=== PATIENT | female | born 1955 | race Caucasian/White ===

== ENCOUNTER 2024-10-13 12:26 | Emergency (ER) | payer MEDICARE, MEDICAID, SELFPAY ==
[2024-10-13 12:28] VITALS: BMI 40.3
[2024-10-13 13:09] VITALS: BP 149/80; PULSE 91; RESP 18; TEMP 37.3; O2SAT 95
--- NOTE | 2024-10-13 13:21 | EDNOTE_ITS ---
<Statement entered by Denise Mcgill MD - 10/21/24 16:19> As co-signing physician, I was present and available for consult prn. I concur with the plan and care as documented by the midlevel provider. ED Abdominal Pain RME/HPI General Chief Complaint: Abdominal Pain Stated complaint: ABD PAIN FOR 3 WEEKS, U/S DONE AT CLINIC Time seen by provider: 10/13/24 13:21 Arrival date/time: 10/13/24 12:26 68-year-old female presents emergency department today complains of intermittent abdominal pain x 1 month patient reports had outpatient ultrasound in the clinic patient does report she has follow-up patient reports that she needs a refill on [place] and that she will be okay to follow-up on an outpatient basis her primary care doctor. Patient reports no fever nausea or vomiting no chest pain or shortness of breath Limitations: no limitations Related Data Previous Rx's ?Medication ?Instructions ?Recorded hydrocodone 5 mg-acetaminophen 325 1 tab PO BID PRN pain #10 tabs 10/13/24 mg tablet Allergies Allergy/AdvReac Type Severity Reaction Status Date / Time No Known Allergies Allergy Verified 10/13/24 12:29 Review of Systems Review of Systems Systems Reviewed: All systems reviewed, normal except as documented Constitutional Constitutional: Reports system reviewed and no additional complaints, except as documented, Denies fever(s) and Denies headache(s) Eyes Eyes: Reports system reviewed and no additional complaints, except as documented and Denies blurry vision ENT Ears, Nose, Mouth, and Throat: Reports system reviewed and no additional complaints, except as documented, Denies headache(s), Denies nasal congestion and Denies nasal discharge Cardiovascular Cardiovascular: Reports system reviewed and no additional complaints, except as documented, Denies chest pain and Denies dyspnea Respiratory Respiratory: Reports system reviewed and no additional complaints, except as documented, Denies chest congestion, Denies cough and Denies dyspnea Gastrointestinal Gastrointestinal: Reports system reviewed and no additional complaints, except as documented, Reports abdominal pain, Denies nausea and Denies vomiting Integumentary/Breasts Skin/Breast: Reports system reviewed and no additional complaints, except as documented and Denies rash Neurologic Neurologic: Reports system reviewed and no additional complaints, except as documented, Reports as per HPI and Denies headache(s) Past Medical History Social History SMOKING STATUS: Never smoker ED Exam General Limitations: Present no limitations General appearance: Present alert and in no apparent distress Head Head exam: Present atraumatic, normocephalic and normal inspection Eye Eye exam: Present normal appearance, PERRL and EOMI; Absent conjunctival injection ENT ENT exam: Present normal exam, normal oropharynx and mucous membranes moist Neck Neck exam: Present normal inspection, full ROM and trachea midline Chest Chest inspection: Present normal inspection and symmetric chest wall rise Respiratory Respiratory exam: Present normal lung sounds bilaterally; Absent respiratory distress Cardiovascular Cardiovascular exam: Present regular rate, normal rhythm and normal heart sounds Abdominal Exam Abdominal exam: Present soft and normal bowel sounds; Absent distention, tenderness, guarding, rebound, rigidity, Jc's sign or tenderness at McBurney's Point Abdominal tenderness: Absent RUQ or RLQ Extremities Exam Extremities exam: Present normal inspection and full ROM Back Exam Back exam: Present normal inspection and full ROM Neurological Exam Neurological exam: Present alert, oriented X3 and CN II-XII intact Psychiatric Psychiatric exam: Present normal affect and normal mood Skin Skin exam: Present warm, dry, intact and normal color Course Quality Measures none Vital Signs Vital signs: Vital Signs Temperature 99.1 F 10/13/24 13:09 Pulse Rate 91 10/13/24 13:09 Respiratory Rate 18 10/13/24 13:09 Blood Pressure 149/80 H 10/13/24 13:09 Pulse Oximetry (%) 95 10/13/24 13:09 Oxygen Delivery Method Room Air 10/13/24 13:09 o2 sat 95% r.a. wnl Abdominal Pain MDM MDM Narrative MDM Narrative:: 68-year-old female presents emergency department today complains of intermittent abdominal pain x 1 month patient reports had outpatient ultrasound in the clinic patient does report she has follow-up patient reports that she needs a refill on [place] and that she will be okay to follow-up on an outpatient basis her primary care doctor. Patient reports no fever nausea or vomiting no chest pain or shortness of breath On exam patient well-appearing patient not appear ill or toxic patient is nontender abdomen Patient discharged home in no distress to follow-up with primary care doctor in the next 24 to 48 hours and for any worsening symptoms to return to the ER immediately Patient data External records reviewed:: [facility] previous records Clinical information provided by:: patient Social determinants that could affect healthcare access:: none Patient has the following chronic illnesses:: none How is presenting disease/condition affected by chronic disease/condition?: no chronic disease Evaluation data The following diagnostics were reviewed and interpreted by me:: other (specify) (N/A) Lab and/or radiology exams considered but not ordered:: Consider not ordered Interpretation Summary: N/A Medications / Prescriptions Medications or Prescriptions considered but not ordered:: Given Medication administrations:: Given Consultations Consultation(s) initiated? (list below): No Diagnosis Differential diagnosis abdominal pain: abdominal pain, acute appendicitis, constipation, diverticulitis and gastroenteritis Most likely diagnosis given after review of the tests above:: abd pain Admission Indicated Admission indicated?: not indicated Admission Request Was there a request for admission?: No Disposition Plan Disposition Plan: Discharge Discharge Attestation Discharge Attestation: The patient and all family members were given an opportunity to ask questions and understood the discharge instructions. Discharge instructions specifically effects, indications for sooner follow up or return to the emergency department, and the expected course of current diagnosis. Patient condition: Stable Discharge Plan Plan Patient Disposition: HOME (Self Care) Disposition Comment: Stable Prescriptions/Referrals Prescriptions/Med Rec: New hydrocodone-acetaminophen 5-325 mg tablet 1 tab PO BID MDD 10 PRN (Reason: pain) Qty: 10 0RF Problem List Clinical Impression: Abdominal pain Patient/Caregiver Discharge Instructions Education Materials: Abdominal Pain Additional Instructions: Please follow-up with your specialist as discussed for worsening symptoms return immediately Please ask your PCP at [facility] to refer you to Dr. Chaudhary Print Language: Estonian Stand Alone Forms: [place] Award Info., Patient Portal Info Letter PA/WHIT Supervising Physician PA/WHIT Supervising Physician: dr mcgill
== END 2024-10-13 13:45 | disposition home or self-care (01) ==
LOC: SERX 13:38
PROVIDERS: Emergency Provider Emergency Medicine; PCP Physician Assistant Medical
DX: R10.9 Unspecified abdominal pain (principal)
CPT/HCPCS: 99281

== ENCOUNTER → 2024-10-15 | Outpatient (CLI) | payer MEDICARE, MEDICAID, SELFPAY ==
--- NOTE | 2024-10-15 12:00 | XR_ITS ---
Examination: CT abdomen and pelvis without contrast. Coronal 3-D reconstructions. Sagittal 2-D reconstructions. Date and time of exam:October 15, 2024 at 1229 hours INDICATIONS: Right lower abdomen and pelvic pain beginning 3 weeks ago CTDI: vol (mGy): 19.4 DLP: (mGycm): 1056 Technique: Axial images of the abdomen have been obtained, 3 mm slice thickness Intravenous contrast material has not been administered. Low dose protocols were performed. One or more of the following dose reduction techniques were used; automated exposure control, adjustment of the mA and/or KV according to patient size, use of iterative reconstruction technique. Findings: Fatty infiltration throughout the liver, no focal liver or splenic lesions No gallstones No pancreatic mass No renal or ureteral calculi, no hydronephrosis Abdominal aortic calcification no aneurysmal dilatation No bowel obstruction Normal appendix Colonic diverticulosis Mild inflammatory change about the diverticula in the sigmoid colon Anteverted uterus Suspicious for early peridiverticular abscess, 30 x 33 mm Moderate osteopenia IMPRESSION: Acute sigmoid diverticulitis Suspicious for early peridiverticular abscess, 33 x 30 mm Recommend repeating the [address] pelvis portion of this study with intravenous contrast
== END | disposition home or self-care (01) ==
PROVIDERS: Referring Provider Physician Assistant Medical; Visit Provider Physician Assistant Medical
DX: K57.32 Diverticulitis of large intestine without perforation or abscess without bleeding (principal)
CPT/HCPCS: 74176

== ENCOUNTER → 2024-11-25 | Outpatient (CLI) | payer MEDICARE, MEDICAID, SELFPAY ==
--- NOTE | 2024-11-25 14:00 | XR_ITS ---
Examination: CT pelvis with intravenous contrast 2-D sagittal reconstructions. 2-D coronal reconstructions. 3-D reconstructions. Date and time of exam:November 25, 2024 1529 hours Comparison October 15, 2024 INDICATIONS: Diagnosis diverticulitis large intestine with perforation history, pelvic pain 3 months CTDI: vol (mGy):52.8 DLP: (mGycm):1352 Technique: Multiple 1.25 mm axial sections of the pelvis post intravenous administration 60 cc Isovue-370 have been obtained. 2-D sagittal and coronal reconstructions have been obtained. 3-D reconstructions have been obtained. Low dose protocols were performed. One or more of the following dose reduction techniques were used; automated exposure control, adjustment of the mA and/or KV according to patient size, use of iterative reconstruction technique. Findings: Colonic diverticulosis No diverticulitis Urinary bladder was thick-walled up to 6 mm Anteverted uterus Osseous structures intact IMPRESSION: Colonic diverticulosis, no current diverticulitis No pelvic abscess Cystitis pattern
== END | disposition home or self-care (01) ==
PROVIDERS: PCP Physician Assistant Medical; Referring Provider Physician Assistant Medical; Visit Provider Physician Assistant Medical
DX: K57.30 Diverticulosis of large intestine without perforation or abscess without bleeding (principal)
CPT/HCPCS: 72193; A4649; Q9967

== ENCOUNTER → 2025-01-05 | Outpatient (CLI) | payer MEDICARE, MEDICAID, SELFPAY ==
--- NOTE | 2025-01-05 09:00 | XR_ITS ---
Examination: Abdomen sonogram, complete Date and time of exam: January 05, 2025 0918 hours INDICATIONS: Preop bariatric surgery one month. Technique: Multiple real-time grayscale transabdominal sonographic images of the abdomen have been obtained. Findings: Gallstones Gallbladder wall 0.2 cm Common bile duct 0.56 cm Pancreas 3.5 cm Aorta not enlarged Liver 19.9 cm fatty infiltration Normal hepatopedal portal venous flow Patent IVC Right kidney 10.6 cm renal cortex 1.4 cm Left kidney 11.1 cm renal cortex 1.4 cm Spleen 14.5 cm IMPRESSION: Cholelithiasis, negative for cholecystitis Pancreatic head mildly prominent 3.5 cm, recommend 3 month follow-up pancreatic ultrasound Moderate hepatomegaly fatty liver
--- NOTE | 2025-01-05 09:12 | XR_ITS ---
Examination: Esophagram standard Fluoroscopy Upright PA chest single view Upright soft tissue lateral neck single view 18 spot fluoroscopic images of the esophagus Exam date and time: January 05, 2025 1058 hours INDICATIONS: Preop bariatric surgery FINDINGS: Upright PA chest single view demonstrates mild prominence left ventricle, no pneumonia or pulmonary edema Soft tissue lateral neck demonstrates advanced degenerative disc disease C5-C6, C6-C7, normal epiglottis Patient swallowed thin barium with primary peristaltic esophageal waves noted Mild gastroesophageal reflux No stricture at the gastroesophageal junction No constricting esophageal lesion IMPRESSION: Mild gastroesophageal reflux Fluoroscopy 0.27 minutes 18 spot fluoroscopic images of the esophagus
== END | disposition home or self-care (01) ==
PROVIDERS: PCP Family Medicine; Referring Provider Student in an Organized Health Care Education/Training Program; Visit Provider Student in an Organized Health Care Education/Training Program
DX: K21.9 Gastro-esophageal reflux disease without esophagitis (principal); K80.20 Calculus of gallbladder without cholecystitis without obstruction; K86.9 Disease of pancreas, unspecified; K76.0 Fatty (change of) liver, not elsewhere classified; Z01.818 Encounter for other preprocedural examination
CPT/HCPCS: 74220; 76700; A4699

== ENCOUNTER → 2025-02-02 | Outpatient (CLI) | payer MEDICARE, MEDICAID, SELFPAY ==
--- NOTE | 2025-02-02 13:15 | XR_ITS ---
Examination: Screening digital mammography, bilateral Computer aided detection 3-D breast Tomosynthesis, bilateral Date and time of exam: February 02, 2025 1321 hours Compared to mammograms dating to February 11, 2008 Indication: Screening Technique: Nonmagnified MLO, CC views of the breasts to been obtained, reconstructed from 3-D Tomosynthesis images. R2 computer aided detection program utilized for evaluation of suspicious masses and/or abnormal calcifications. 3-D Tomosynthesis images obtained. Findings: The breasts are heterogeneously dense, which may obscure small masses Focal asymmetry central right breast nipple level again depicted slightly more prominent Surgical clips inner and retroareolar region right breast Impression: BI-RADS Category 0: Incomplete: Need additional imaging evaluation Recommend spot tomographic views of focal asymmetry nipple level right breast as well as right breast sonography to complete the workup
== END | disposition home or self-care (01) ==
PROVIDERS: PCP Physician Assistant Medical; Referring Provider Physician Assistant Medical; Visit Provider Physician Assistant Medical
DX: Z12.31 Encounter for screening mammogram for malignant neoplasm of breast (principal); R92.1 Mammographic calcification found on diagnostic imaging of breast
CPT/HCPCS: 77063; 77067

== ENCOUNTER 2025-02-21 08:30 | Day surgery (SDC) | payer MEDICARE, MEDICAID, SELFPAY ==
[2025-02-18 13:37] LABS: Partial Thromboplastin Time 27.2 Seconds (22.0-36.0); Prothrombin Time 11.1 Seconds (9.0-12.2)
[2025-02-18 13:43] LABS: Alanine Aminotransferase 25 U/L (10-49); Albumin, Serum 4.4 gm/dL (3.4-4.8); Albumin/Globulin Ratio 1.7 (1.2-2.2); Alkaline Phosphatase 94 U/L (46-116); Anion Gap 9 (7-16); Aspartate Amino Transferase 20 U/L (0-34); BUN/Creatinine Ratio 17 Ratio (12-20); Bilirubin,Total 0.4 mg/dL (0.3-1.2); Blood Urea Nitrogen 17 mg/dL (9-23); Calcium 9.1 mg/dL (8.3-10.6); Calcium (Corrected) 9.1 mg/dL (8.5-10.1); Carbon Dioxide 28.1 mMol/L (20.0-31.0); Chloride 103 mMol/L (98-107); Globulin 2.6 gm/dL (2.3-3.5); Glucose 133 mg/dL (74-106); Osmolality,Calculated 282 (275-295); Potassium 4.3 mMol/L (3.4-5.1); Sodium 140 mMol/L (136-145); eGFR > 60 See Note
[2025-02-21] VITALS (7 sets, daily range): BP systolic 115–152; BP diastolic 61–89; PULSE 74–87; RESP 15–22; TEMP 36.3–36.8; O2SAT 94–98; BMI 42.7
[2025-02-21] MEDS: RINGERS LACTATED 1000 ML 1,000 ML 20 ML IV (10:58)
--- NOTE | 2025-02-21 12:55 | SUR.PHASEII ---
1240 Pt more awake and alert. Denies pain or N/V. Abd remains soft. Pt passing flatus. Bekah Po fluids.
--- NOTE | 2025-02-21 12:58 | SUR.PHASEII ---
1227 Pt assessment unchanged. No complaints. Amb with steady gait. Able to dress self. Pt and son given dc instructions. Aware of new prescription to be picked up at [facility]. Both state understanding. Pt meets dc criteria-to home.
== END 2025-02-21 12:27 | disposition home or self-care (01) ==
PROVIDERS: PCP Physician Assistant Medical; Referring Provider Specialist; Visit Provider Specialist
PROC: 0DBE8ZX Excision of Large Intestine, Via Natural or Artificial Opening Endoscopic, Diagnostic (ICD-10-PCS; CPT 45380; principal; 2025-02-21 10:30)
PROC: (CPT 43239; 2025-02-21 10:30)
DX: Z01.818 Encounter for other preprocedural examination (principal); D12.8 Benign neoplasm of rectum; K64.9 Unspecified hemorrhoids; K57.30 Diverticulosis of large intestine without perforation or abscess without bleeding; K20.90 Esophagitis, unspecified without bleeding; K29.60 Other gastritis without bleeding; K31.89 Other diseases of stomach and duodenum; E66.01 Morbid (severe) obesity due to excess calories; I10 Essential (primary) hypertension; F41.9 Anxiety disorder, unspecified; Z68.41 Body mass index [BMI] 40.0-44.9, adult; Z79.899 Other long term (current) drug therapy
CPT/HCPCS: 45380; 43239; 36415; 80053; 85610; 85730; A4649; J7120

== ENCOUNTER → 2025-03-08 | Outpatient (CLI) | payer MEDICARE, MEDICAID, SELFPAY ==
--- NOTE | 2025-03-08 09:45 | XR_ITS ---
Examination: Breast ultrasound, unilateral, right complete Date and time of exam: March 08, 2025 1030 hours INDICATIONS: Mammogram February 02, 2025 focal asymmetry nipple level right breast Technique: Real-time villaseñor scale ultrasonographic imaging performed right breast including all 4 quadrants as well as nipple retroareolar and axillary region. Findings: No cystic or solid mass IMPRESSION: BI-RADS Category 1: Negative study
== END | disposition home or self-care (01) ==
LOC: CDIM 10:19
PROVIDERS: PCP Physician Assistant Medical; Referring Provider Physician Assistant Medical; Visit Provider Physician Assistant Medical
DX: N64.89 Other specified disorders of breast (principal)
CPT/HCPCS: 76641